=== PATIENT | male | born 1980 | race Caucasian/White ===

== ENCOUNTER → 2021-07-24 10:35 | Outpatient (BNVA) | payer OTHER, SELFPAY | PROVIDERS: Visit Provider Physician Assistant Medical | DX: S33.9XXA Sprain of unspecified parts of lumbar spine and pelvis, initial encounter (principal); X50.0XXA Overexertion from strenuous movement or load, initial encounter | CPT/HCPCS: 99203 ==

== ENCOUNTER → 2022-02-21 11:46 | Outpatient (BNVA) | payer OTHER, SELFPAY | PROVIDERS: Visit Provider Internal Medicine | DX: J34.89 Other specified disorders of nose and nasal sinuses (principal); L53.8 Other specified erythematous conditions | CPT/HCPCS: 99202 ==

== ENCOUNTER → 2024-12-07 08:21 | Outpatient (BNVA) | payer OTHER, SELFPAY | PROVIDERS: Visit Provider Physician Assistant Medical | DX: S62.001A Unspecified fracture of navicular [scaphoid] bone of right wrist, initial encounter for closed fracture (principal); X50.0XXA Overexertion from strenuous movement or load, initial encounter | CPT/HCPCS: 73110; 99203 ==

== ENCOUNTER → 2024-12-22 10:54 | Outpatient (BNVA) | payer OTHER, SELFPAY | PROVIDERS: Visit Provider Emergency Medicine | DX: S62.001D Unspecified fracture of navicular [scaphoid] bone of right wrist, subsequent encounter for fracture with routine healing (principal); X50.0XXD Overexertion from strenuous movement or load, subsequent encounter | CPT/HCPCS: 99213 ==

== ENCOUNTER 2024-12-28 12:40 | Outpatient (REF) | payer OTHER, SELFPAY ==
--- NOTE | ~2024-12-28 | MR_ITS ---
CLINICAL HISTORY: HYPEREXTENDSION INJURY 12.02.24, PAIN MR right wrist without contrast Comparison: CR/SR - XR WRIST NAVICULAR RIGHT - 12/07/24 09:07 EDT Findings: Normal marrow signal. The musculature is normal in signal and bulk. Normal vessels. There is dorsal intercalated segment instability. No ulnar variance. The distal radioulnar joint is congruent. Small carpal and distal radioulnar joint effusions. The scapholunate ligament is torn. Intact lunotriquetral and triangular fibrocartilage. Normal extensor compartment. Normal carpal tunnel, median nerve, flexor retinaculum, flexor tendons and Guyon canal. Intact first carpometacarpal, scaphotrapezotrapezoidal and pisiform-triquetral joints. Impression: Tear of the scapholunate ligament with associated dorsal intercalated segment instability. Small carpal and distal radioulnar joint effusions. This document has been electronically signed by: María Sue MD on 12/28/2024 14:11:24
--- OUTSIDE RECORDS SUMMARY | 2024-12-28 16:41 | XMS_ITS ---
Author Name [facility] Organization Unknown Encounters Encounter Type Encounter Reason Primary Diagnosis Location Date Ambulatory [facility], [facility]. ([facility]) 04/01/2024
--- OUTSIDE RECORDS SUMMARY | 2024-12-28 16:41 | XMS_ITS | Clinical Summary ---
Author Organization [facility] Address [address] [place] [address] Care Team Providers Care Lawn Technician Name Role Phone Unavailable Primary Care Provider Unavailabl e Source Comments PLEASE NOTE, if this patient is a minor, it may be UNLAWFUL to discuss sensitive information that is contained in these records (such as FAMILY PLANNING, MENTAL HEALTH or SUBSTANCE ABUSE) with the minor patient's parent or other person without the patient's specific authorization.[facility] Allergies No known active allergies Medications [place]-3 Fatty Acids-Vitamin E (FISH OIL) 1,000 mg cap Take 2 Caps by mouth once daily. Active loratadine (CLARITIN) 10 mg tablet Take 10 mg by mouth once daily. Active L.acidoph-L.rhamn -B.bif-B.long (PROBIOTIC ACIDOPHILUS BIOBEADS) 2.5 billion cell TbEC Take 1 Tab by mouth once daily. Active oi-tm-YY-lycopene -lut-#178herb (KATIE MULTIVITAMIN FOR MEN) 200-175-250 mcg Tab Take 2 Caps by mouth once daily. Active NFDB - ADRENAL SUPPORTIndication s:Other malaise and fatigue Take 2 Caps by mouth once daily. 60 Cap 3 12/09/2011 Active Active Problems Problem Noted Date Diagnosed Date Other malaise and fatigue 11/25/2011 Family History Medical History Relation Name Comments Depression Paternal Uncle 1 schizophren ia Depression Paternal Uncle 2 schizophren ia Relation Name Status Comments Paternal Uncle 1 Paternal Uncle 2 Social History Tobacco Use Types Packs/Day Years Used Date Smoking Tobacco: Former Cigarettes 0.5 10 0 11/24/1994 - 11/24/2004 Smokeless Tobacco: Current Chew Tobacco Cessation:Ready to Q uit: Yes Alcohol Use Standard Drinks/Week Comments Yes 2.5 (1 standard drink = 0.6 oz p ure alcohol) Sex and Gender Information Value Date Recorded Sex Assigned at Not on file Legal Sex Male 1:32 AM PST Gender Identity Not on file Sexual Orientation Not on file Last Filed Vital Signs Vital Sign Reading Time Taken Comments Blood Pressure 108/72 12/09/2011 4:43 PM PDT Pulse 72 12/09/2011 4:43 PM PDT Temperature 36.8 C (98.3 F) 11/25/2011 4:48 PM PDT Respiratory Rate 12 12/09/2011 4:43 PM PDT Oxygen Saturation - - Inhaled Oxygen Concentration - - Weight - - Height - - Body Mass Index - - Plan of Treatment Not on file
== END 2024-12-28 12:41 | disposition home or self-care (01) ==
LOC: HO.MRI 12:40
PROVIDERS: Visit Provider Emergency Medicine
DX: M25.531 Pain in right wrist (principal)
CPT/HCPCS: 73221

== ENCOUNTER → 2024-12-28 12:41 | Outpatient (BNV) | payer OTHER, SELFPAY | PROVIDERS: Visit Provider Radiology Diagnostic Radiology | DX: S63.511A Sprain of carpal joint of right wrist, initial encounter (principal); M25.431 Effusion, right wrist; X50.9XXA Other and unspecified overexertion or strenuous movements or postures, initial encounter | CPT/HCPCS: 73221 ==

== ENCOUNTER 2024-12-29 09:50 | Outpatient (AMB) | payer OTHER, SELFPAY ==
[2024-12-29 10:08] VITALS: BMI 29.7
--- NOTE | 2024-12-29 10:08 | A.OFFVIS_ITS ---
Vital Signs 12/29/24 10:08 Height 6 ft 1 in Weight 225 lb BMI 29.7 Intake Visit Reasons: N/P W/C RT wrist injury/ ligament tear Intake Note: right hand dominant male who presents today for his W/C injury to his right wrist on 12/02/24. 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 He felt immediate pain and was seen at [facility] and then seen at [facility] the following day. An MRI was done. Currently states his pain is better, he continues to wear his brace and is doing gentlr ROM. Denies numbness or tingling in finger tips. Allergies No Known Allergies Allergy (Verified 12/29/24 10:12) HPI HPI N/P W/C RT wrist injury/ ligament tear: Details: Jerson is a 44 year old right hand dominant man who presents for a right scaph olunate tear, from an injury at work, DOI: 12/02/24. 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 He was seen at [facility] and given a splint. He had an MRI done on 12/28/24. He complains of mild pain in his wrist, but says this has improved. He has been wearing his splint and working on gentle ROM. He still has a clicking sensation in his wrist. He denies any numbness or tingling. [facility] Medical History (Updated 12/29/24 @ 10:23 by Sammy Melendez) Tympanosclerosis of left ear Social History (Updated 12/29/24 @ 10:13 by Orquidea Avalos 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 Review of Systems Const All systems reviewed & are unremarkable except as noted in HPI and below Physical Exam Vital Signs: BMI result Body Mass Index 29.7 Const General: cooperative, healthy appearing and no acute distress Orientation/consciousness: patient oriented x3 HEENT Head: Yes normocephalic and Yes atraumatic Eyes EOM: EOMs intact bilaterally Resp Effort & Inspection: normal respiratory effort and able to speak in complete sentences Cardio Jugular venous distension: no JVD Skin General skin exam: turgor normal Rashes: no rashes Neuro General: patient oriented x3 Extrem Other: Evaluation of Right Upper Extremity: The patient is alert, oriented, and in no acute distress Neuro: Median, Ulnar, Radial nerves motor and sensory intact and sensation is normal to the tips of all digits Vascular: Cap refill brisk ROM: He can make a fist and extend all his digits Skin: No lacerations or abrasions. General: No Ecchymosis. No Erythema or evidence of infection. Pos scaphoid shift test Right wrist MRI: Findings: Normal marrow signal. The musculature is normal in signal and bulk. Normal vessels. There is dorsal intercalated segment instability. No ulnar variance. The distal radioulnar joint is congruent. Small carpal and distal radioulnar joint effusions. The scapholunate ligament is torn. Intact lunotriquetral and triangular fibrocartilage. Normal extensor compartment. Normal carpal tunnel, median nerve, flexor retinaculum, flexor tendons and Guyon canal. Intact first carpometacarpal, scaphotrapezotrapezoidal and pisiform-triquetral joints. Impression: Tear of the scapholunate ligament with associated dorsal intercalated segment instability. Small carpal and distal radioulnar joint effusions. This document has been electronically signed by: María Sue MD on 12/28/2024 Psych Appearance: grossly normal Affect: normal affect Attitude: cooperative Assessment & Plan Assessment & Plan (1) Right scapholunate ligament tear: Code(s): S63.8X1A - Sprain of other part of right wrist and hand, initial encounter Category: Medical Plan Assessment & Plan: 1. 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 He will remove this at home at rest I discussed activity modifications, he is to lift nothing heavier than a cellphone for the next 8 weeks. They should also avoid any heavy impact activities, falls, or sports activities for the next 8 weeks The risks and benefits of operative treatment were discussed with the patient and the patient wishes to proceed with surgery. These risks include, but are not limited to risk of damage to blood vessels, nerves, tendons, infection, recurrence, incomplete relief of preoperative symptoms, persistent pain, possible need for further surgery and the risks associated with regional blocks and anesthesia. The plan is to take the patient to the operating room sometime on 01/06/25 for the following procedures: 1. Right wrist ORIF & scapholunate ligament repair, under general All of the preoperative paperwork including the consent was reviewed today. All the patient's questions were answered. The patient understands that they will be contacted by our spares scheduler soon to schedule this procedure He denies Diabetes, blood thinners, asthma, heart, lung, kidney issues Please note that greater than 45 minutes was spent with this patient going over the history, evaluating the patient and radiographs, formulating possible treatment options, discussing them with the patient, and documenting the visit. Scribed for Kassi Avelar MD by Sammy Melendez, medical dosimetrist, on 12/29/24 at 10:25 AM, EST. Coding Level of Care Code New Pt Level 4 (96005) Diagnoses Right scapholunate ligament tear S63.8X1A
--- OUTSIDE RECORDS SUMMARY | 2024-12-29 11:41 | XMS_ITS | Clinical Summary ---
Author Organization [facility] Address [address] [place] [address] Care Team Providers Care Sportspersons Name Role Phone Unavailable Primary Care Provider Unavailabl e Source Comments PLEASE NOTE, if this patient is a minor, it may be UNLAWFUL to discuss sensitive information that is contained in these records (such as FAMILY PLANNING, MENTAL HEALTH or SUBSTANCE ABUSE) with the minor patient's parent or other person without the patient's specific authorization.[facility] Allergies No known active allergies Medications [place]-3 Fatty Acids-Vitamin E (FISH OIL) 1,000 mg cap Take 2 Caps by mouth once daily. Active loratadine (CLARITIN) 10 mg tablet Take 10 mg by mouth once daily. Active L.acidoph-L.rhamn -B.bif-B.long (PROBIOTIC ACIDOPHILUS BIOBEADS) 2.5 billion cell TbEC Take 1 Tab by mouth once daily. Active lc-vb-AA-lycopene -lut-#178herb (KATIE MULTIVITAMIN FOR MEN) 200-175-250 mcg [...]
== END 2024-12-29 11:08 | disposition home or self-care (01) ==
LOC: HO.HOS 09:51
PROVIDERS: Visit Provider Orthopaedic Surgery
DX: S63.8X1A Sprain of other part of right wrist and hand, initial encounter (principal)
CPT/HCPCS: 99204

== ENCOUNTER → 2024-12-29 09:50 | Outpatient (BNVA) | payer OTHER, SELFPAY | PROVIDERS: Visit Provider Orthopaedic Surgery | DX: S63.8X1A Sprain of other part of right wrist and hand, initial encounter (principal) | CPT/HCPCS: 99202 ==

== ENCOUNTER 2025-01-06 07:50 | Day surgery (SDC) | payer OTHER, SELFPAY ==
--- NOTE | 2025-01-04 09:49 | HO.ANESPROP2 ---
Documented by User: Aliya Colbert NP 01/04/25 09:50 HPI - Anesthesia Eval Consult details Narrative: 44yo M for Right Wrist ORIF,scapholunate ligament tear PMFSH Active Problems Active Problems: All Active Problems Right scapholunate ligament tear (Acute) Past Medical History Medical History Tympanosclerosis of left ear Surgical History Surgical History History of tympanoplasty of left ear Social History Social History Patient Tobacco Use Status: Former Tobacco user Tobacco use type: Cigarette Use of substances other than those prescribed or required for medical reasons: No Advance Directives: No Advance Directives Information Provided: Yes Poor oral hygiene: No Current occupational status: employed 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 Meds Allergies Allergy/AdvReac Type Severity Reaction Status Date / Time No Known Allergies Allergy Verified 12/29/24 10:12 Home Medications ?Medication ?Instructions ?Recorded ?Confirmed ?Last Taken ?Type methylphenidate HCl 27 mg 27 mg PO QAM PRN unknown 12/29/24 01/06/25 01/05/25 History tablet,extended release 24 hr prazosin 2 mg capsule 2 mg PO BEDTIME 12/29/24 01/06/25 01/05/25 History venlafaxine 150 mg 300 mg PO BEDTIME 12/29/24 01/06/25 01/05/25 History capsule,extended release 24 hr Assessment and Plan Assessment Anesthesia Assessment: Chart Reviewed Documented by User: Nikhil Muro MD 01/06/25 09:46 PMFSH Past Medical History Medical History Tympanosclerosis of left ear Functional capacity: independent ambulation Family History Family history of problems with anesthesia: No Surgical History Surgical History History of tympanoplasty of left ear History of Problems with Anesthesia: No Social History Social History Patient Tobacco Use Status: Former Tobacco user Tobacco use type: Cigarette Use of substances other than those prescribed or required for medical reasons: No Advance Directives: No Advance Directives Information Provided: Yes Poor oral hygiene: No Current occupational status: employed 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 Meds Allergies Allergy/AdvReac Type Severity Reaction Status Date / Time No Known Allergies Allergy Verified 12/29/24 10:12 Home Medications ?Medication ?Instructions ?Recorded ?Confirmed ?Last Taken ?Type methylphenidate HCl 27 mg 27 mg PO QAM PRN unknown 12/29/24 01/06/25 01/05/25 History tablet,extended release 24 hr prazosin 2 mg capsule 2 mg PO BEDTIME 12/29/24 01/06/25 01/05/25 History venlafaxine 150 mg 300 mg PO BEDTIME 12/29/24 01/06/25 01/05/25 History capsule,extended release 24 hr Assessment and Plan Assessment Anesthesia Assessment: Anesthesia Plan Discussed Final Anesthetic Review Family History of Problems with Anesthesia: No History of Problems with Anesthesia: No NPO: Yes ASA Class: II Final Preanesthetic Review: No Changes in Pt Med Stat, Meds/Allgs Chart Reviewed, Consent Obtained/Reviewed and Anes Risks/Benef Reviewed Patient Risk: Low Procedure Risk: Low Anesthetic Plan Anesthetic Plan: GA and Agree w/ Assess. and Plan Disposition: Standard PACU and Inp. Admit - ICU
[2025-01-06] VITALS (8 sets, daily range): BP systolic 110–126; BP diastolic 53–89; PULSE 72–100; RESP 16; TEMP 36.7–37.2; O2SAT 94–99; BMI 29.8
--- NOTE | ~2025-01-06 | FL_ITS ---
EXAMINATION: FL GUIDANCE ONLY HISTORY: ORIF - right COMPARISON: Correlation is made with plain films of the right wrist dated 12/07/2024. TECHNIQUE: Fluoroscopy time: 2 minutes, 26.2 seconds. Cumulative Dose: 4.62 mGy. DAP: 0.2754 Gym2 Images: 13. FINDINGS: Fluoroscopic spot films of the right wrist demonstrate placement of multiple pins at the radial aspect of the carpus. FL/FL guidance in OR IMPRESSION: Fluoroscopy during procedure. Please see procedure report for additional information. Electronically signed by: Sandro Stoll MD 01/07/2025 07:01 AM EDT
--- NOTE | 2025-01-06 07:36 | W.PM.OPN ---
Operative Note Operative Note Date of Service: 01/06/25 Narrative: Operative Note Narrative: Preop diagnosis: ? 1. Right scapholunate ligament tear with instability Postop diagnosis: ?Same Procedure: ? 1. Right wrist open reduction of the scapholunate joint with fixation 2. Right scapholunate ligament repair Surgeon: ?Kassi Avelar MD Microfilming Document Preparer: ?Kevin CANTU Anesthesia: ?General Anesthesia ?plus regional block Findings: ?Scapholunate ligament tear visualized. Scapholunate angle before reduction was about 80 degrees Implants: 0.054 K-wires times 2 Tourniquet time: ?105 minutes EBL: ?5.0 ml Specimen: ?None Drains: ?None Complications: ?None Disposition: ?Brought to the recovery room in stable condition Plan: ? Follow-up in 10-14 days for wound check, pre clinic radiographs, suture removal and placement in a short-arm cast Anticipate K-wire removal at 6-8 weeks. Indications: ?The patient 44 years old with ?with a right wrist scapholunate ligament tear with instability ?. ?The risks and benefits of operative treatment, including but not limited to risk of damage to blood vessels, nerves, tendons, infection, recurrence, persistent pain or numbness, incomplete resolution of preoperative symptoms, or need for further surgery were discussed with the patient and they wished to proceed with surgery. Procedure: ?Once consent was obtained patient was brought back to the operating suite and placed in the operating table in a supine position. ?A regional block was performed by the anesthesia team. ?Perioperative antibiotics and anesthesia was administered by the anesthesia team. ?A tourniquet was applied to the proximal aspect of the left upper extremity and the limb was prepped and draped in a standard surgical fashion. ?The limb was elevated exsanguinated with Esmarch bandage and the tourniquet inflated to 250 mm of mercury for a total tourniquet time of 105 minutes. ? The FluoroScan was used during the case to assess our reduction and placement of all implants. ???I made a 6 cm longitudinal incision centered over the dorsal aspect of the patient's right wrist extending essentially from the base of the 3rd metacarpal to just ulnar to Rosalba's tubercle. ?The incision was made through the skin the subcutaneous tissues using a 15. Blade. ?I then dissected down to the level of the extensor retinaculum. ?I opened the distal aspect of the extensor retinaculum longitudinally on the radial aspect of the 4th dorsal compartment. ?The extensor tendons of the 4th dorsal compartment were then retracted ulnarly. ?The EPL tendon was left within the 3rd dorsal compartment and protected during the case. ???The distal aspect of the posterior interosseous nerve was identified and a neurectomy performed to decrease pain in the wrist. ?I then carefully made a longitudinal incision extending from the dorsal aspect of the distal radius distally over the capsular ligamentous tissues in the direction of the 3rd metacarpal. ?Care was taken to assure that there was no penetration through the capsular ligamentous tissues that would injure the articular cartilage or the intercarpal ligament of the wrist joint. ?We created radial and ulnar flaps. ?At this point we can visualize the scapholunate interval as well as the head of the capitate. ?We visualize the disruption of the scapholunate ligament between the scaphoid and the lunate, and the scaphoid was found to be in some flexion and the lunate tipped dorsally with a scapholunate angle of about 85 degrees.. ?Applying traction across the wrist joint did appear to reduce the scaphoid and the lunate. ?0.062 K-wires were placed as joysticks into the dorsal aspect of the scaphoid and the lunate. ?This helped facilitate our reduction. ?I passed a 0.054 K-wire transversely through the radial aspect of the scaphoid and passing across the scapholunate interval and into the lunate. ?I passed a 2nd 0.054 K-wire through the radial aspect of the scaphoid across the scaphoid capitate joint and into the capitate. ? ?I was satisfied with our reduction and placement of all implants on fluoroscopic images. ?The Pins were cut short bent and pin caps were applied. I then turned my attention to the repair of the scapholunate ligament. ?Regarding the scapholunate ligament, there was a significant portion of the scapholunate ligament still attached to the dorsal aspect of the lunate. We did find a small remnant that we could reapproximate to on the dorsal aspect of the scaphoid. I thus repaired the scapholunate ligament primarily using some 4-0 FiberWire suture material.??I then advanced a section of the dorsal capsule from the dorsal aspect of the distal radius to the dorsal aspect of the scaphoid just distal to the waist, performing a capsulodesis securing it using some 4-0 FiberWire. I was satisfied with our fixation and our repair and decided not to place a 3rd K-wire. At this point the wound was irrigated with normal saline. The dorsal capsule was then reapproximated with some 4-0 FiberWire and 4-0 Vicryl. ?The extensor retinaculum was then repaired over top of the 4th dorsal compartment using some 3-0 Ethibond and 4-0 Vicryl suture. ?The EPL tendon was visualized within the 3rd dorsal compartment and its mobility visualized with some thumb motion. ?At this point the wound was copiously irrigated with normal saline. ? The tourniquet was deflated and hemostasis obtained with a brief period of local pressure and bipolar electrocautery. ?The wound was copiously irrigated with normal saline. ?The subcutaneous layer was closed with 4-0 Vicryl suture, and the skin edges were reapproximated with 5-0 nylon suture. ?The wound was infiltrated with some 1% lidocaine with epinephrine for postop pain control and a sterile dressing and dorsal splint was applied. ?The patient appears to have tolerated the procedure well and with no complications. ?All digits were well vascularized conclusion of the case.
[2025-01-06] MEDS: Lactated Ringers 1,000 ML 100 ML IVCONT (08:29)
--- NOTE | 2025-01-06 09:35 | MHC.SHP ---
Pre-Procedural Eval Section A - 24 Hr Update-Section A only Date of Service: 01/06/25 The patient is an INPATIENT: No Changes since office visit: Yes Cold of Flu in the past 2 weeks, Yes New Medical Problems, Yes Changes in Medication and Yes Patient answered all questions The patient has been examined within 24 hours of the surgical procedure. The History & Physical has been completed within 30 days and I have reviewed it.: Yes Section B - Complete if H&P > 30 days Chief Complaint: Sprain of other part of right wrist and hand, init Allergies: Allergies Allergy/AdvReac Type Severity Reaction Status Date / Time No Known Allergies Allergy Verified 12/29/24 10:12 Plan I have reviewed the history and physical and performed a pertinent physical examination on my patient. No changes have occurred unless specified. Time Spent With Patient Time: Total time managing care of this patient today ____ minutes.
== END 2025-01-06 15:05 | disposition home or self-care (01) ==
PROVIDERS: Visit Provider Orthopaedic Surgery
PROC: (CPT 25628; principal; 2025-01-06 09:30)
DX: S63.8X1A Sprain of other part of right wrist and hand, initial encounter (principal); M25.531 Pain in right wrist; M25.331 Other instability, right wrist; Y93.F2 Activity, caregiving, lifting; Y92.89 Other specified places as the place of occurrence of the external cause; Y99.0 Civilian activity done for income or pay; Z79.899 Other long term (current) drug therapy; Z98.890 Other specified postprocedural states; Z87.891 Personal history of nicotine dependence
CPT/HCPCS: 25628; 25320; J0131; J0665; J0690; J1100; J1171; J2003; J2004; J2250; J2405; J2704; J2795; J3010

== ENCOUNTER → 2025-01-06 07:50 | Outpatient (BNV) | payer OTHER, SELFPAY | PROVIDERS: Visit Provider Orthopaedic Surgery | DX: S63.511A Sprain of carpal joint of right wrist, initial encounter (principal) | CPT/HCPCS: 25320 ==

== ENCOUNTER 2025-01-18 11:06 | Outpatient (AMB) | payer OTHER, SELFPAY ==
--- NOTE | 2025-01-18 11:19 | MHC.OFFVIS ---
Intake Visit Reasons: P/O W/C RT SL ligament repair DOI 12/02/24 Intake Note: Jerson is a 44 year old Right hand dominant male who presents today for his first post operative visit s/p Right Scaphoid ORIF & Scapholunate Ligament repair 01/06/25. This is a work related injury from 12/02/24. States he is doing well, no pain but at times he feels a sharp stabbing sensation by pins site. Allergies No Known Allergies Allergy (Verified 01/18/25 11:24) HPI HPI P/O W/C RT SL ligament repair DOI 12/02/24: Details: Jerson is a 44 year old right hand dominant man who returns S/P scapholunate joint ORIF & ligament repair, DOS: 01/06/25. This is from an injury at work, DOI: 12/02/24. 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 He says he is doing better and his pain overall has improved. He complains of an occasional sharp pain in his radial wrist, near his pin sites. He says this began following surgery. He denies any numbness or tingling. 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 Sutures removed and Steri-Strips applied Sensation is intact Cap refill is brisk Radiographs: 3 views of the right wrist were taken and viewed by me today in clinic. They show the scapholunate interval well-reduced with satisfactory position of 2 K-wires Psych Appearance: grossly normal Affect: normal affect Attitude: cooperative Assessment & Plan Assessment & Plan (1) Right scapholunate ligament tear: Code(s): S63.8X1A - Sprain of other part of right wrist and hand, initial encounter Category: Medical Plan Assessment & Plan: 1. 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 I discussed activity modifications, he is to lift nothing heavier than a cellphone for the next 6 weeks. 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 Anticipate at least 8 weeks out of work, up to 3 months post-op He will follow up in 4 weeks, with X-rays 3V R wrist, OOP. Anticipate removal of K-wires at 6-8 weeks post-op, ideally closer to 8 weeks. Anticipate OT referral after K-wire removal Scribed for Kassi Avelar MD by Sammy Melendez, medical sales representative, on 01/18/25 at 11:25 AM, EST. Orders: Orders XR wrist RT min 3V Today M25.531 - Pain in right wrist Coding Level of Care Code Global (53533) Diagnoses Right scapholunate ligament tear S63.8X1A
--- OUTSIDE RECORDS SUMMARY | 2025-01-18 13:47 | XMS_ITS | Data Portability ---
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 The pain has continued since that time in spite of rest and vigorous rehab. The patient has been able to continue to work but has had to modify his movement pattern secondary to pain. He denies any weakness but feels that his shoulder is unstable. ROS: Pertinent positives and negatives as above. For full review of all systems, please refer to scanned intake form. 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 Tobacco: Denies. FHx: No family history that contributes to today's MSK complaint. Physical Exam: Afebrile Gen: No acute distress.AOx3. Smiling and pleasant. Skin: Warm, dry, MMM Lymphatics: no noted lymphadenopathy MSK: Shoulder Exam: Inspection: No noted significant asymmetry or atrophy. Mild to moderate forward rounding of the shoulders. Mild to moderate scapular protraction. No winging. Trapezius: symmetric. Palpation: SC - nl, AC - nl. Periscapular - nl. Bicipital groove - nl. Rotator cuff muscles - Mild TTP. Greater tub. - nl. Lesser tub - nl. ROM: Full and symmetric with painful arc. Strength: IR/ER/Scaption/for morris flex/abduct./adduc t: 5/5 and symmetric. Special tests: Tressa's: Positive. Belly lift-off: neg. Speed's: neg. Neer: neg. Guerrero: Positive. [place]: Positive. Biceps labral provocation: Positive. Javier' 90/90 Resisted IR: Positive. Scarf: neg. Apprehension: neg. Relocation: neg. Anterior drawer: neg. Post. drawer: neg. Sulcus: neg. Elbow exam: Inspection: No noted asymmetry or atrophy. No edema, effusion, or ecchymosis noted. ROM: full. Strength: 5/5. Palpation: Radial head: No TTP. Coronoid: No TTP. Olecranon: No TTP. Lateral epicondyles: Positive TTP over common extensor tendon attachment. TTP over myotendinous junction. Medial epicondyle: Mild TTP. UCL: Nl. Triceps tendon: Normal. Biceps tendon: Normal. Special Tests: Resisted wrist extension: Positive. Resisted forearm supination: Positive. Resisted forearm pronation: Normal. Varus stress at 20 : Negative, at full extension: Negative. Valgus stress at 20 : Negative, full extension: Negative. Extension valgus test: Negative. Dynamic valgus stress: nl. Milking: nl. Ulnar Tinel's:nl. Neurovascular: Sensation to light touch: Intact and symmetric. DTR: Intact and symmetric. Peripheral pulses: Intact and symmetric. Cap. Refill: brisk. Radiographic/Imagi ng Interpretation: 4 view left shoulder . Findings: No fracture or dislocation. Joint space is well-preserved. Normal alignment. No significant degenerative changes noted. Impression: Negative . MRI left shoulder. Impression: SLAP tear Images are stored and retrievable. Assessment: 1. Ongoing left shoulder pain-SLAP tear 2. Left medial and lateral epicondylitis Procedure: None Plan: 1.Consultation with Dr. Sweet 2. Home rehab programs for both the elbow and the shoulder were given 3. Nitroglyerin patch-Benefits and risks were discussed including common adverse reactions such as headache and local rash. This medication should not be used when on ED medications or if the patient has a history of severe migraine disorder. If the patient has continuing headache associated with use, the patient should discontinue use of the patch. The same is true with development of a local rash. 4. Diclofenac -Benefits and risks were thoroughly discussed with the patient. The patient was instructed to monitor for GI upset and to avoid dehydration while on the medication. Recommended duration of use was also discussed. The patient felt comfortable starting the medication and would like to proceed with its use. 5. Gabapentin for pain management-benefit s of gabapentin in pain control were thoroughly discussed. Common adverse effects such as cognitive impairment, morning somnolence were discussed. Though this is not a habit-forming medication it is important to wean off the medication progressively secondary to the possibility of emotional lability. Recommended duration of use was also discussed. The patient felt comfortable starting the medication and would like to proceed with its use. 6. Follow up as needed All of the patient's questions were answered fully. The patient feels comfortable with the present care plan. Thanks for allowing me to be a part of this patient's care team! Please feel free to contact me for any reason. Sincerely, Brock Tipton MD, [facility] Sports [facility] [email or web address] Not available 07/10/2023 17:56:45 07/24/2023 07/24/2023 X-rays 4 views previously obtained and personally reviewed today AP internal/external, scapular Y, axillary views left shoulder demonstrate: Maintained glenohumeral and AC joint space. Type II acromion. No fractures. No calcifications MRI left shoulder obtained on June 18, 2023 images and report independently reviewed: Signal change at the anterior inferior labrum consistent with fraying or tear. It is not reported however there is signal change at the superior labrum possibly consistent with SLAP tear. Mild synovial thickening of the AC joint without any advanced degenerative changes. Biceps tendon is intact. Bursal fraying distal supraspinatus. Subchondral changes at the infraspinatus insertion. Type II acromion. Subacromial bursitis. Impression: Left shoulder pain and instability symptoms-findings consistent with anterior labral tear Plan: Reviewed the diagnosis and treatment options with the patient today. Patient complains of pain and instability symptoms with mild anterior instability on examination today. 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 We discussed options including activity modification, anti-inflammatorie s, corticosteroid injections, formal PT, and surgery for symptoms refractory to conservative treatment. Potential surgical intervention discussed: Left shoulder diagnostic arthroscopy, possible anterior labral repair, possible SLAP repair versus debridement, limited, possible extensive debridement, and all other indicated procedures. Would recommend further nonsurgical treatment including formal physical therapy and corticosteroid injection before considering surgical mention. Patient is happy to try some additional nonoperative treatment. Injection was administered referral therapy was provided. He will follow-up in 2 months for repeat exam. All questions answered today. [email or web address] Not available 07/24/2023 09:19:33 09/04/2023 09/04/2023 Imaging previous ly reviewed: X-rays 4 views previously obtained and personally reviewed today AP internal/external, scapular Y, axillary views left shoulder demonstrate: Maintained glenohumeral and AC joint space. Type II acromion. No fractures. No calcifications MRI left shoulder obtained on June 18, 2023 images and report independently reviewed: Signal change at the anterior inferior labrum consistent with fraying or tear. It is not reported however there is signal change at the superior labrum possibly consistent with SLAP tear. Mild synovial thickening of the AC joint without any advanced degenerative changes. Biceps tendon is intact. Bursal fraying distal supraspinatus. Subchondral changes at the infraspinatus insertion. Type II acromion. Subacromial bursitis. Impression: Left shoulder pain and instability symptoms-findings consistent with anterior labral tear Plan: Patient reports significant improvement after corticosteroid injection and physical therapy. He did reaggravated his shoulder while at work last night. Given significant clinical improvement we will plan for continued nonoperative care for now. Patient would be interested in corticosteroid injection. We discussed need to wait 12 weeks between injection. If ongoing symptoms refractory to conservative management would consider surgical intervention: Left shoulder diagnostic arthroscopy, possible anterior labral repair, possible SLAP repair versus debridement, possible biceps tenodesis, limited, possible extensive debridement, and all other indicated procedures. Patient would like to schedule injection only visit in 6 weeks. All questions answered today. [email or web address] Not available 09/04/2023 18:24:08 Plan of Treatment Reminders Order Date Submit Date Provider Last Modified By Organization Details Last Modified Time Details Appointments None recorded. Lab None recorded. Referral physical therapist referral - STREN[facility] NG AND STABILIZATI ON FOR ANTERIOR LABRAL TEAR IN LEFT SHOULDER 2023 024 [email or web address] Not available 11:20:43 Procedures None recorded. Surgeries None recorded. Imaging None recorded. Medication Orders None recorded. Patient TargetsNo targets recorded. Patient InstructionsNo instructions recorded. Reason for Referral Physical Therapist Referral for Glenoid labrum tear ANTERIOR LABRAL TEAR STRENGTHENING AND STABILIZATION FOR ANTERIOR LABRAL TEAR IN LEFT SHOULDER Referring Physician: Dylan Sweet, Orthopedic Surgery, Encounter Date: 07/24/2023 Results Created Date Observation Date Name Description Value Unit Range Abnormal Flag Note LastModifiedBy Organization Detail LastModifiedTime 12/12/1906/10/2023 imagi ng/di prasad tic resul t No observ ation record ed. [email or web address] Not Available 11/14 21:02:35 Result Notes None recorded. Problems Name Problem SNOMED Code Status Onset Date Resolution Date Notes Provider Name and Address Organization Details Recorded Time Anterior to posterior tear of superior glenoid labrum of left shoulder 14008379304498 108 Active 2023 Brock hernandez MD [address], [address], [facility] 17:57:00 Problem Notes None recorded. Procedures Surgical History Date Name Laterality Status Provider Name and Address Organization Details Recorded Time Sports Shoulder completed Dylan Sweet MD [address], [address], [facility] 07/24/2023 09:16:15 Imaging Results None recorded. Procedure Notes None recorded. Medical Equipment None Reported. Allergies No known drug allergies Medications Name Sig Start Date Stop Date Status Note LastModified by Organization Details LastModified Time nitroglycer in 0.1 mg/hr transdermal 24 hour patch USE as directed - Apply 1 full patch to desired location as needed Replace every 24 hours active Not Available Not Available No t Available prazosin 1 mg capsule Take 1 capsule (1 mg) by mouth daily at bedtime 07/09 completed Not Available Not Available Not Available venlafaxine ER 150 mg capsule,ext ended release 24 hr Take 2 capsules (300 mg) by mouth daily after breakfast active Not Available Not Available No t Available gabapentin 300 mg capsule TAKE 1 CAPSULE BY MOUTH EVERY NIGHT AT BEDTIME active Not Available Not Available No t Available diclofenac sodium 75 mg tablet,rachel yed release TAKE 1 TABLET BY MOUTH TWICE DAILY WITH food directed active Not Available Not Available No t Available prazosin 2 mg capsule Take 1 capsule (2 mg) by mouth daily at bedtime active Not Available Not Available No t Available methylpheni date ER 27 mg tablet,exte nded release 24 hr Take 1 tablet (27 mg) by mouth daily in the morning as needed only active Not Available Not Available No t Available atomoxetine 100 mg capsule Take 1 capsule (100 mg) by mouth daily in the morning active Not Available Not Available No t Available Vitals Date Recorded Body height Body mass index (BMI) Body weight Provider Name and Address Organization Details Last Updated DateTime 07/10/2023 187.96 cm 28.2 kg/m2 83731.32 g NOAH AQUINO [facility] 07/10/2023 14:14:55 Date Recorded Body height Body mass index (BMI) Body weight Provider Name and Address Organization Details Last Updated DateTime 07/24/2023 187.96 cm 28.2 kg/m2 81685.32 g JOSÉ LUIS ANTON [facility] 07/24/2023 08:37:26 Date Recorded Body height Body mass index (BMI) Body weight Provider Name and Address Organization Details Last Updated DateTime 09/04/2023 187.96 cm 28.2 kg/m2 96054.32 g Candice guo [facility] 09/04/2023 09:30:56 Social History Question Answer Notes LastModified by Organizat ion Details LastModified Time Tobacco Smoking Status Never Smoker NOAH mercado [facility] 07/10/2023 14:17:06 When Did You Quit Smoking? 11-15yearssin celastcigaret te Information not available 09/04/2023 Have You Ever Been Counseled For Unhealthy Alcohol Use? No Information not available 07/10/2023 What Is Your Relationship Status? Domestic Partner Information not available 09/04/2023 Sex: Unknown Functional Status Question Answer Note LastModified by Organizat ion Details LastModified Time How many times per week do you consume alcohol? 3-4 times per week Information not available 09/04/2023 Do you use any illicit or recreational drugs? No Information not available 07/10/2023 Do you or have you ever used any other forms of tobacco or nicotine? Yes Information not available 09/04/2023 What is your level of alcohol consumption? Moderate Information not available 07/10/2023 Do you or have you ever used e-cigarettes or vape? Never used electronic cigarettes Information not available 09/04/2023 Mental Status None recorded. Family History Nothing Reported. Medical History Condition Response Allergies/Hayfever N Coronary Artery Disease N Anxiety/Depression N Emphysema N Thyroid Problems N COPD N Pacemaker N Kidney/Bladder Problems N Anemia N Vascular Disease N Heart Attack ([place]) N Gastrointestinal Disease N Diabetes N Autoimmune disease N Bleeding Disorder N Orthotics N Seizures/Epilepsy N Arthritis N Blood Clot N AIDS/HIV N Congestive Heart Failure (CHF) N Acid Reflux (GERD) N Cancer N Stroke N Asthma N Peripheral Vascular Disease N Sleep Apnea N Hepatitis N Heart Disease N Rheumatoid Arthritis N Pulmonary Embolism N Arrhythmia N Fibromyalgia N Hypertension N Osteoporosis N Past Encounters Encounter ID Performer Location Encounter Start Date Encounter Closed Date Diagnosis/Indication Diagnosis SNOMED-CT Code Diagnosis ICD10 Code Diagnosis IMO Codes Diagnosis Note [id number] Brock smith MD [facility] on [address] [place] [address] 07/10/2023 13:46:26 07/25/2023 13:33:20 Anterior to posterior tear of superior glenoid labrum of left shoulder [id number] S43.432D [id number] [facility] [address] [place] [address] 07/24/2023 08:33:07 08/19/2023 12:44:20 Glenoid labrum tear 674410693 S43.432A [id number] [facility] [address] [place] [address] 09/04/2023 09:12:04 09/27/2023 08:16:58 Glenoid labrum tear [id number] S43.432A Health Concerns Section Related Observation LastModified by Organization Detai ls LastModified Time None Recorded Concern Status LastModified by Organization Details LastModified Time None Recorded Advance Directives Directive None Recorded Payers Insurance Date Sequence Insurance Name Policy Number Policy Pizano Covered Member ID Pizano Member ID Guarantor Name 10/21/2023 1 [facility] [id number] Jerson Hancock [id number] Jerson Hancock Notes Date Note Type Note Provider Name and Address Organization Details Recorded Time 07/24/2023 text/html CC: Left shoulder painHPI: 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 Patient reports his shoulder has always felt loose . patient reports symptoms worsened after injury while training during for; to (do) in November 2022. He describes. Having his arm positioned in a [place] lock where he felt his shoulder subluxate. Since that episode he has had worsening pain and instability symptoms. He describes pain and weakness with overhead lifting and supination. 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 He has been following with Dr. Tipton for shoulder and elbow symptoms. MRI of the left shoulder has been obtained. Patient here today for surgical consultation. Previous treatment including home exercise program. He has not had any formal physical therapy or steroid injections. ROS: Pertinent positives and negatives as above. 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 Tobacco: Denies. Dylan Sweet MD [address] [place] [address] [address], [place], [address], [facility] - [facility] 07/24/2023 09:20:10 09/04/2023 text/html CC: Left shoulder painInterval history: Patient following up today for his right shoulder. Corticosteroid injection was administered and he was referred to physical therapy at last visit. Patient reports physical therapy was significantly helpful. He has had much less shoulder pain. He reports reaggravated his shoulder while working overnight while carrying a ventilator. 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 Patient reports his shoulder has always felt loose . patient reports symptoms worsened after injury while training during in November 2022. He describes. Having his arm positioned in a [place] lock where he felt his shoulder subluxate. Since that episode he has had worsening pain and instability symptoms. He describes pain and weakness with overhead lifting and supination. 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 He has been following with Dr. Tipton for shoulder and elbow symptoms. MRI of the left shoulder has been obtained. Patient here today for surgical consultation. Previous treatment including home exercise program. He has not had any formal physical therapy or steroid injections. ROS: Pertinent positives and negatives as above. 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 Tobacco: Denies. Dylan Sweet MD [address] [place] [address] [address], [place], [address], [facility] - [facility] 09/04/2023 18:24:22
--- OUTSIDE RECORDS SUMMARY | 2025-01-18 13:47 | XMS_ITS | Clinical Summary ---
Author Organization [facility] Address [address] [place] [address] Care Team Providers Care Chemistry Laboratory Technician Name Role Phone Unavailable Primary Care Provider Unavailabl e Source Comments PLEASE NOTE, if this patient is a minor, it may be UNLAWFUL to discuss sensitive information that is contained in these records (such as FAMILY PLANNING, MENTAL HEALTH or SUBSTANCE ABUSE) with the minor patient's parent or other person without the patient's specific authorization.[facility] Allergies No known active allergies Medications [place]-3 Fatty Acids-Vitamin E (FISH OIL) 1,000 mg cap Take 2 Caps by mouth once daily. Active loratadine (CLARITIN) 10 mg tablet Take 10 mg by mouth once daily. Active L.acidoph-L.rhamn -B.bif-B.long (PROBIOTIC ACIDOPHILUS BIOBEADS) 2.5 billion cell TbEC Take 1 Tab by mouth once daily. Active cz-uh-YG-lycopene -lut-#178herb (KATIE MULTIVITAMIN FOR MEN) 200-175-250 mcg [...]
== END 2025-01-18 12:13 | disposition home or self-care (01) ==
PROVIDERS: Visit Provider Orthopaedic Surgery
DX: S63.8X1A Sprain of other part of right wrist and hand, initial encounter (principal)
CPT/HCPCS: 99024

== ENCOUNTER → 2025-01-18 11:09 | Outpatient (BNV) | payer OTHER, SELFPAY | PROVIDERS: Visit Provider Radiology Diagnostic Radiology | DX: M25.531 Pain in right wrist (principal) | CPT/HCPCS: 73110 ==

== ENCOUNTER 2025-01-18 11:17 | Outpatient (REF) | payer OTHER, SELFPAY ==
--- NOTE | ~2025-01-18 | XR_ITS ---
EXAMINATION: XR WRIST 3 OR MORE VIEWS RIGHT HISTORY: M25.531 - Pain in right wrist COMPARISON: Comparison is made with the prior examination dated 12/07/2024. FINDINGS: Three views of the right wrist are submitted. Osseous mineralization is normal. There is no fracture or dislocation. There has been interval placement of K wires across the scapholunate and scaphocapitate joint spaces. The soft tissues are unremarkable. XR/XR wrist RT min 3V IMPRESSION: Internal fixation of the right wrist as described. Electronically signed by: Sandro Stoll MD 01/18/2025 11:21 AM EDT
== END 2025-01-18 11:18 | disposition home or self-care (01) ==
LOC: HO.HOSX 11:17
PROVIDERS: Visit Provider Orthopaedic Surgery
DX: S63.8X1A Sprain of other part of right wrist and hand, initial encounter (principal); X58.XXXA Exposure to other specified factors, initial encounter
CPT/HCPCS: 73110; 99212

== ENCOUNTER 2025-01-25 08:08 | Outpatient (REF) | payer OTHER, SELFPAY ==
--- NOTE | ~2025-01-25 | XR_ITS ---
EXAMINATION: XR WRIST 3 OR MORE VIEWS RIGHT HISTORY: M25.531 - Pain in right wrist COMPARISON: Comparison is made with the prior examination dated 01/18/2025. FINDINGS: Three views of the right wrist are submitted. Osseous mineralization is normal. Again seen is internal fixation with placement of K wires across the scapholunate and scaphocapitate spaces. The appearance is not significantly changed from the prior study. The soft tissues are unremarkable. XR/XR wrist RT min 3V IMPRESSION: Internal fixation of the right wrist as described. Electronically signed by: Sandro Stoll MD 01/25/2025 10:49 AM EDT
== END 2025-01-25 08:09 | disposition home or self-care (01) ==
LOC: HO.HOSX 08:08
PROVIDERS: Visit Provider Emergency Medicine
DX: Z47.1 Aftercare following joint replacement surgery (principal); S62.001D Unspecified fracture of navicular [scaphoid] bone of right wrist, subsequent encounter for fracture with routine healing; X50.0XXD Overexertion from strenuous movement or load, subsequent encounter
CPT/HCPCS: 73110; 99212; 99213

== ENCOUNTER 2025-01-25 09:22 | Outpatient (AMB) | payer OTHER, SELFPAY ==
--- NOTE | 2025-01-25 10:02 | MHC.OFFVIS ---
Intake Visit Reasons: PO - Right SL Ligament Repair 01/06/25 Intake Note: Jerson is a 44 year old Right hand dominant male who presents today for a cast change for his post operative visit s/p Right Scaphoid ORIF & Scapholunate Ligament repair 01/06/25. This is a work related injury from 12/02/24. STates he is having increase pain and throbbing, no injury he can recall. Cast removed in office. Allergies No Known Allergies Allergy (Verified 01/25/25 10:03) HPI HPI PO - Right SL Ligament Repair 01/06/25: Details: Jerson is a 44 year old right hand dominant man who returns S/P scapholunate joint ORIF & ligament repair, DOS: 01/06/25. This is from an injury at work, DOI: 12/02/24. 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 He complains of worsening pain in the volar aspect of his wrist, near the carpal tunnel, onset ~2 days ago. He denies any falls or injuries, and he says he has been following his activity restrictions. He complains of some occasional numbness in his hand but he says this is only present when he fully extends his arm. 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 The pins do not appear to have moved No pain with gentle axial loading of the wrist No tenderness about the wrist. No swelling no erythema or warmth. Sensation is intact Cap refill is brisk He can bring his fingers close to a weak fist and back into extension. Normal sensation to the tips of all digits. Some decreased sensation in part of the superficial radial nerve distribution over the thumb that is unchanged. Radiographs: 3 views of the right wrist were taken and viewed by me today in clinic. They show the scapholunate interval well-reduced with satisfactory position of 2 K-wires, no change compared to prior. Psych Appearance: grossly normal Affect: normal affect Attitude: cooperative Assessment & Plan Assessment & Plan (1) Right scapholunate ligament tear: Code(s): S63.8X1A - Sprain of other part of right wrist and hand, initial encounter Category: Medical Plan Assessment & Plan: 1. 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 I do not see any evidence of infection, and the pins are in good position. I educated him about the post-operative course He was placed in a short arm cast, to be worn for the next 3 weeks I explained the signs and symptoms of infection, if the patient develops any new or worsening erythema, drainage, pain, or warmth they should contact the clinic or attend the ED. No need for Abx at this time I discussed activity modifications, he is to lift nothing heavier than a cellphone for the next 6 weeks. 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 Anticipate at least 8 weeks out of work, up to 3 months post-op He will follow up on 02/15/25 as scheduled, with X-rays 3V R wrist, OOP. Anticipate placement in new cast for the following 2 weeks Anticipate removal of K-wires at 6-8 weeks post-op, ideally closer to 8 weeks. Anticipate OT referral after K-wire removal Scribed for Kassi vAelar MD by Sammy Melendez medical staff manager, on 01/25/25 at 11:25 AM, EST. Orders: Orders XR wrist RT min 3V Today M25.531 - Pain in right wrist Coding Level of Care Code Global (48094) Diagnoses Right scapholunate ligament tear S63.8X1A
--- OUTSIDE RECORDS SUMMARY | 2025-01-25 10:13 | XMS_ITS | Clinical Summary ---
Author Organization [facility] Address [address] [place] [address] Care Team Providers Care Unix Systems Administrator Name Role Phone Unavailable Primary Care Provider Unavailabl e Source Comments PLEASE NOTE, if this patient is a minor, it may be UNLAWFUL to discuss sensitive information that is contained in these records (such as FAMILY PLANNING, MENTAL HEALTH or SUBSTANCE ABUSE) with the minor patient's parent or other person without the patient's specific authorization.[facility] Allergies No known active allergies Medications [place]-3 Fatty Acids-Vitamin E (FISH OIL) 1,000 mg cap Take 2 Caps by mouth once daily. Active loratadine (CLARITIN) 10 mg tablet Take 10 mg by mouth once daily. Active L.acidoph-L.rhamn -B.bif-B.long (PROBIOTIC ACIDOPHILUS BIOBEADS) 2.5 billion cell TbEC Take 1 Tab by mouth once daily. Active dw-ma-WB-lycopene -lut-#178herb (KATIE MULTIVITAMIN FOR MEN) 200-175-250 mcg [...]
== END 2025-01-25 11:49 | disposition home or self-care (01) ==
LOC: HO.HOS 09:22
PROVIDERS: Visit Provider Orthopaedic Surgery
DX: S63.8X1A Sprain of other part of right wrist and hand, initial encounter (principal)
CPT/HCPCS: 99024

== ENCOUNTER → 2025-01-25 10:25 | Outpatient (BNV) | payer OTHER, SELFPAY | PROVIDERS: Visit Provider Radiology Diagnostic Radiology | DX: M25.531 Pain in right wrist (principal) | CPT/HCPCS: 73110 ==

== ENCOUNTER 2025-02-15 11:24 | Outpatient (AMB) | payer OTHER, SELFPAY ==
--- NOTE | 2025-02-15 12:14 | A.OFFVIS_ITS ---
Intake Visit Reasons: PO-RT SL ligament repair 01/06/25 w/xrays Intake Note: Jerson is a 44 year old Right hand dominant male who presents today for a cast change for his post operative visit s/p Right Scaphoid ORIF & Scapholunate Ligament repair 01/06/25. This is a work related injury from 12/02/24. At his last visit he was placed in a short arm cast, he is to lift nothing heavier than a cellphone. He will perform gentle finger ROM exercises at home. 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 Today patient states he is doing well, no pain just discomfort.. Allergies No Known Allergies Allergy (Verified 01/25/25 10:03) HPI HPI PO-RT SL ligament repair 01/06/25 w/xrays: Details: Jerson is a 44 year old right hand dominant man who returns S/P scapholunate joint ORIF & ligament repair, DOS: 01/06/25. This is from an injury at work, DOI: 12/02/24. 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 He says he is doing well overall, and he denies any pain. He says he has been getting some mild irritation from the pins. He denies any falls or injuries, and he says he has been following his activity restrictions. He says he has some increased pain in the mornings, and he is a restless sleeper and has occasional vivid dreams where he moves around. He complains of some occasional numbness in his hand but he says this is only present when he fully extends his arm. He says he is getting in March so he would hopefully like to be out of a cast by that day. 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 The pins do not appear to have moved No pain with gentle axial loading of the wrist No tenderness about the wrist. No swelling no erythema or warmth. Sensation is intact Cap refill is brisk He can bring his fingers close to a weak fist and back into extension. Normal sensation to the tips of all digits. Some decreased sensation in part of the superficial radial nerve distribution over the dorsal ulnar aspect of the thumb that is unchanged. Radiographs: 3 views of the right wrist were taken and viewed by me today in clinic. They show the scapholunate interval well-reduced with satisfactory position of 2 K- wires. There has been some very small migration of the scaphocapetate pin, which is now entering the hamate. Psych Appearance: grossly normal Affect: normal affect Attitude: cooperative Assessment & Plan Assessment & Plan (1) Right scapholunate ligament tear: Code(s): S63.8X1A - Sprain of other part of right wrist and hand, initial encounter Category: Medical Plan Assessment & Plan: 1. 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 I educated him about the post-operative course He was placed in a short arm cast, to be worn for the next 2 weeks I explained the signs and symptoms of infection, if the patient develops any new or worsening erythema, drainage, pain, or warmth they should contact the clinic or attend the ED. No need for Abx at this time I discussed activity modifications, he is to lift nothing heavier than a cellphone for the next 2 weeks. 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 Anticipate at least 8 weeks out of work, up to 3 months post-op He will follow up in 2 weeks, with X-rays 3V R wrist, OOP. Anticipate K-wire removal & placement in wrist splint, to be worn like a cast. Anticipate OT referral after K-wire removal. He says he is getting in March so he would hopefully like to be out of a cast by that day. Scribed for Kassi Avelar MD by Sammy Melendez, certified medical transcriptionist, on 02/15/25 at 12:25 PM, EST. Orders: Orders XR wrist RT min 3V Today M25.531 - Pain in right wrist Coding Level of Care Code Global (77936) Diagnoses Right scapholunate ligament tear S63.8X1A
--- OUTSIDE RECORDS SUMMARY | 2025-02-15 14:03 | XMS_ITS | Data Portability ---
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 Tobacco: Denies. FHx: No family history that [...] neg. Speed's: neg. Neer: neg. Guerrero: Positive. [place]: Positive. Biceps labral provocation: Positive. Javier' 90/90 [...] for any reason. Sincerely, Brock Tipton MD, [facility] katerina Not available 07/10/2023 17:56:45 [...] today. 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 All questions answered today. [email or web address] Not available 07/24/2023 09:19:33 09/04/2023 09/04/2023 Imaging [...] in 6 weeks. All questions answered today. [email or web address] Not available 09/04/2023 18:24:08 Plan of Treatment [...] of superior glenoid labrum of left shoulder [id number] 108 Active 2023 Brock hernandez MD [address], [address], [facility] 17:57:00 Problem Notes None recorded. Procedures Surgical History Date Name Laterality Status Provider Name and Address Organization Details Recorded Time Sports Shoulder completed Dylan Sweet MD [address], [address], [facility] 07/24/2023 [...] Updated DateTime 07/10/2023 187.96 cm 28.2 kg/m2 87205.32 g NOAH AQUINO [facility] 07/10/2023 14:14:55 Date Recorded Body height Body mass index (BMI) Body weight Provider Name and Address Organization Details Last Updated DateTime 07/24/2023 187.96 cm 28.2 kg/m2 20266.32 g JOSÉ LUIS ANTON [facility] 07/24/2023 08:37:26 Date Recorded Body height Body mass index (BMI) Body weight Provider Name and Address Organization Details Last Updated DateTime 09/04/2023 187.96 cm 28.2 kg/m2 18674.32 g Candice guo [facility] 09/04/2023 09:30:56 Social History Question Answer Notes LastModified by Organizat ion Details LastModified Time Tobacco Smoking Status Never Smoker NOAH mercado [facility] 07/10/2023 14:17:06 When Did You Quit Smoking? [...] History Nothing Reported. Medical History Condition Response Coronary Artery Disease N Anxiety/Depression N Emphysema N COPD N Pacemaker N Vascular Disease N Gastrointestinal Disease N Autoimmune disease N Orthotics N Arthritis N Blood Clot N Acid Reflux (GERD) N Cancer N Stroke N Rheumatoid Arthritis N Arrhythmia N Fibromyalgia N Allergies/Hayfever N Thyroid Problems N Kidney/Bladder Problems N Anemia N Heart Attack (MD) N Diabetes N Bleeding Disorder N Seizures/Epilepsy N AIDS/HIV N Congestive Heart Failure (CHF) N Asthma N Peripheral Vascular Disease N Sleep Apnea N Hepatitis N Heart Disease N Pulmonary Embolism N Hypertension N Osteoporosis N Past Encounters Encounter ID Performer Location Encounter Start Date Encounter Closed Date Diagnosis/Indication Diagnosis SNOMED-CT Code Diagnosis ICD10 Code Diagnosis IMO Codes Diagnosis Note [id number] Brock smith MD [facility] on [facility] [address] [place] [address] 07/10/2023 13:46:26 07/25/2023 13:33:20 Anterior to posterior tear of superior glenoid labrum of left shoulder [id number] 1398546 S43.432D [id number] [facility] [address] [place] [address] 07/24/2023 08:33:07 08/19/2023 12:44:20 Glenoid labrum tear 987057512 S43.432A [id number] [facility] [address] [place] [address] 09/04/2023 09:12:04 09/27/2023 08:16:58 Glenoid labrum tear 839645750 S43.432A Health Concerns Section Related Observation LastModified by Organization Detai ls LastModified Time None Recorded Concern Status LastModified by Organization Details LastModified Time None Recorded Advance Directives Directive None Recorded Payers Insurance Date Sequence Insurance Name Policy Number Policy Pizano Covered Member ID Pizano Member ID Guarantor Name 10/21/2023 1 [facility] [id number] Jerson Hancock [id number] Jerson Hancock Notes Date Note Type Note Provider Name and Address Organization Details Recorded Time 07/24/2023 text/html CC: Left shoulder painHPI: Patient is a 43-year-old roqxz-wvcp-velkdlgo 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 Patient reports his shoulder has always felt loose . patient reports symptoms worsened after injury while training during [employer] in November 2022. He describes. Having his arm positioned in a [place] lock where he felt his shoulder subluxate. Since that episode he has had worsening pain and instability symptoms. He describes pain and weakness with overhead lifting and supination. 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 He has been following with Dr. 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 Tobacco: Denies. Dylan Sweet MD [address] [place] [address] [address], [place], [address], [facility] 07/24/2023 09:20:10 09/04/2023 text/html [...] a ventilator. 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 He has been following with Dr. 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 Tobacco: Denies. Dylan Sweet MD [address] [place] [address] [address], [place], [address], [facility] 09/04/2023 18:24:22
--- OUTSIDE RECORDS SUMMARY | 2025-02-15 14:03 | XMS_ITS | Data Portability ---
Author Organization [facility], [address] Address [address] [place] [address] Assessment No assessment recorded. Plan of Treatment Reminders Order Date Submit Date Provider Last Modified By Organization Details Last Modified Time Details Appointments None record ed. Lab None record ed. Referral None record ed. Procedures None record ed. Surgeries None record ed. Imaging None record ed. Medication Orders None record ed. Patient TargetsNo targets recorded. Patient InstructionsNo instructions recorded. Reason for Referral None Reported. Procedures Surgical History Date Name Laterality Status Provider Name and Address Organization Details Recorded Time [facility] Send Out Template NON DOT completed [facility] 04/01/2024 12:34:10 Imaging Results None recorded. Procedure Notes None recorded. Medical Equipment None Reported. Medications Name Sig Start Date Stop Date Status Note LastModified by Organization Details LastModified Time atorvastatin 80 mg tablet Take 1 Tablet by mouth once daily active Not Available Not Available No t Available nitroglycerin 0.1 mg/hr transdermal 24 hour patch USE as directed - Apply 1 full patch to desired location as needed Replace every 24 hours active Not Available Not Available No t Available venlafaxine ER 150 mg capsule,exten ded release 24 hr Take 2 capsules (300 mg) by mouth daily after breakfast active Not Available Not Available No t Available gabapentin 300 mg capsule TAKE 1 CAPSULE BY MOUTH EVERY NIGHT AT BEDTIME active Not Available Not Available No t Available diclofenac sodium 75 mg tablet,delaye d release TAKE 1 TABLET BY MOUTH TWICE DAILY WITH food directed active Not Available Not Available No t Available prazosin 2 mg capsule Take 1 capsule (2 mg) by mouth daily at bedtime active Not Available Not Available No t Available methylphenida te ER 27 mg tablet,extend ed release 24 hr Take 1 tablet (27 mg) by mouth daily in the morning as needed only active Not Available Not Available No t Available atomoxetine 100 mg capsule Take 1 capsule (100 mg) by mouth daily in the morning active Not Available Not Available No t Available Vitals None Recorded Social History None recorded. Functional Status None recorded. Mental Status None recorded. Family History Nothing Reported. Medical History No medical history recorded. Past Encounters Encounter ID Performer Location Encounter Start Date Encounter Closed Date Diagnosis/Indication Diagnosis SNOMED-CT Code Diagnosis ICD10 Code Diagnosis IMO Codes Diagnosis Note [id number] [address] [address] [address] 10/19/2018 13:18:02 10/19/2018 15:15:01 [id number] PJ BREEN MD [address] [address] 04/01/2024 12:06:37 04/01/2024 12:41:11 History and physical examination, occupation [id number] Z02.1 Health Concerns Section Related Observation LastModified by Organization Detai ls LastModified Time None Recorded Concern Status LastModified by Organization Details LastModified Time None Recorded Advance Directives Directive None Recorded Payers Insurance Date Sequence Insurance Name Policy Number Policy Pizano Covered Member ID Pizano Member ID Guarantor Name 04/01/2024 [employer]-1_ 01.24.2017 [id number] Jerson Hancock 04/01/2024 1 [facility] [id number] Jerson Hancock [id number] Jerson Hancock
== END 2025-02-15 13:05 | disposition home or self-care (01) ==
LOC: HO.HOS 11:24
PROVIDERS: Visit Provider Orthopaedic Surgery
DX: S63.8X1A Sprain of other part of right wrist and hand, initial encounter (principal)
CPT/HCPCS: 99024

== ENCOUNTER → 2025-02-15 11:25 | Outpatient (BNV) | payer OTHER, SELFPAY | PROVIDERS: Visit Provider Radiology Diagnostic Radiology | DX: M25.531 Pain in right wrist (principal) | CPT/HCPCS: 73110 ==

== ENCOUNTER 2025-02-15 12:57 | Outpatient (REF) | payer OTHER, SELFPAY ==
--- NOTE | ~2025-02-15 | XR_ITS ---
EXAMINATION: XR WRIST, RIGHT CLINICAL INFORMATION: M25.531 - Pain in right wrist COMPARISON: Previous x-rays most recent January 25, 2025 TECHNIQUE: PA, lateral, and oblique views of the right wrist. FINDINGS: K wires seen across the scapholunate and scaphocapitate joints. These appear unchanged in position. Increasing osteopenia in the wrist. Question volar tilt of the lunate on the lateral view, unchanged. Soft tissues are unremarkable.. XR/XR wrist RT min 3V IMPRESSION: Stable appearance of K wires across the scapholunate capitate and scapholunate joints. Electronically signed by: Marialuisa Loja MD 02/15/2025 11:42 AM [place]
--- OUTSIDE RECORDS SUMMARY | 2025-02-16 15:40 | XMS_ITS | Clinical Summary ---
Author Organization [facility] Address [address] [place] [address] Care Team Providers Care Neck Pinner Name Role Phone Unavailable Primary Care Provider Unavailabl e Source Comments PLEASE NOTE, if this patient is a minor, it may be UNLAWFUL to discuss sensitive information that is contained in these records (such as FAMILY PLANNING, MENTAL HEALTH or SUBSTANCE ABUSE) with the minor patient's parent or other person without the patient's specific authorization.[facility] Allergies No known active allergies Medications [place]-3 Fatty Acids-Vitamin E (FISH OIL) 1,000 mg cap Take 2 Caps by mouth once daily. Active loratadine (CLARITIN) 10 mg tablet Take 10 mg by mouth once daily. Active L.acidoph-L.rhamn -B.bif-B.long (PROBIOTIC ACIDOPHILUS BIOBEADS) 2.5 billion cell TbEC Take 1 Tab by mouth once daily. Active np-ye-NT-lycopene -lut-#178herb (KATIE MULTIVITAMIN FOR MEN) 200-175-250 mcg [...]
== END 2025-02-15 12:58 | disposition home or self-care (01) ==
LOC: HO.HOSX 12:57
PROVIDERS: Visit Provider Orthopaedic Surgery
DX: S63.8X1A Sprain of other part of right wrist and hand, initial encounter (principal); M25.531 Pain in right wrist; Z98.890 Other specified postprocedural states
CPT/HCPCS: 73110; 99212

== ENCOUNTER 2025-02-19 14:47 | Emergency (ER) | payer OTHER, SELFPAY ==
--- NOTE | ~2025-02-19 | XR_ITS ---
CLINICAL HISTORY: pain 4 views right wrist Comparison: 02/15/2025 Findings: Percutaneous fixation pins extending through the scaphoid bone and capitate bone as well as scaphoid bone and lunate bone are re-identified in stable alignment. No evidence of hardware failure. No acute fracture or dislocation.. Impression: 1. Stable hardware and osseous alignment as described above. This document has been electronically signed by: Alonzo Perdue MD on 02/19/2025 15:56:30
[2025-02-19 15:02] VITALS: BP 129/82; PULSE 116; RESP 18; TEMP 36.4; O2SAT 96; BMI 29.0
--- NOTE | 2025-02-19 15:03 | ED.GENADULT ---
HPI - General Adult General Chief complaint: Extremity Problem Stated complaint: r arm pain in cast needs cast check Time Seen by Provider: 02/19/25 15:10 Source: patient History of Present Illness HPI narrative: 44-year-old male, status post right scapholunate ligament tear repair on January 06 presents for evaluation of right wrist pain at the surgical site. Patient states he had follow up with his hand surgeon, Dr. Avelar on February 15. At that time the cast was removed and he was recasted. Patient states that he is feeling discomfort at the site of the pins that are protruding. He denies any paresthesias or paralysis. He is right-hand dominant. He did not call the office. Patient denies any repeat trauma. Related Data Home Medications ?Medication ?Instructions ?Recorded ?Confirmed methylphenidate HCl 27 mg 27 mg PO QAM PRN unknown 12/29/24 01/06/25 tablet,extended release 24 hr prazosin 2 mg capsule 2 mg PO BEDTIME 12/29/24 01/06/25 venlafaxine 150 mg 300 mg PO BEDTIME 12/29/24 01/06/25 capsule,extended release 24 hr Allergies Allergy/AdvReac Type Severity Reaction Status Date / Time No Known Allergies Allergy Verified 02/19/25 15:05 Review of Systems Review of Systems: Yes all other systems are reviewed and are negative Musculoskeletal: Musculoskeletal: Denies deformity and Denies arthralgias FOR[facility]LY [facility], [facility] Past Medical History Medical History Tympanosclerosis of left ear Surgical History History of tympanoplasty of left ear Social History Social History Patient Tobacco Use Status: Former Tobacco user Tobacco use type: Cigarette Advance Directives: No Advance Directives Information Provided: Yes Current occupational status: employed 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 Full range of motion of all digits. Capillary refill less than 2 seconds. There was no erythema. Course Course Course Narrative: Medical screening exam performed. Please refer to detailed history, exam, evaluation, and management by primary provider. Status post scapholunate ligament repair January 06. Reevaluation(s) Reevaluation #1: 3:06 p.m. message to [facility]. Requesting that the cast be removed then the patient sent to x-ray. If x-ray is okay, he patient may be placed back in a volar splint and he will arrange for follow up in the office this coming week. 3:30 p.m. patient seen and evaluated by cesilia Asencio. Dressing over the surgical site was removed by him and cleansed. Reviewed all orthopedic follow up instructions with the patient. See procedure notes. Patient tolerated splinting. Reviewed all discharge instructions. No further questions at this time. Procedures Orthopedic Splinting/Casting Injury #1: Side: right Upper Extremity Injury Location: wrist Upper Extremity Immobilizer: volar splint Additional Comments: Dry sterile dressing was applied to the pin site for stabilization. Wrap was applied. Padding and volar Orthoglass follow up by Segundo wrap. Motor and sensation intact. Capillary refill less than 2 seconds. Medical Decision Making Medical Decision Making MDM Narrative: 44-year-old male status post hand surgery, reporting pain at the surgical site. Verify with ortho for next steps. Differential Diagnosis Differential Diagnoses: The differential diagnosis associated with the presentation includes Hardware failure Postop infection Cast malfunction Contusion Consult Healthcare Provider Management of the patient was discussed with: Mechanical Planner (Orthopedic) Radiology Impression Discussion of test interpretation with radiology: I have reviewed the radiologist's reading. Prescription Management I considered prescription management with: Pain Medication Discharge Plan Discharge Clinical Impression: Post-operative pain Patient Disposition: Home, Self-Care Instructions: Splint Care (ED) Additional Instructions: Splint as directed. Do not get wet. Follow up with Dr. Avelar this week. Follow-up with your primary care provider. Call this week to schedule a follow-up appointment. Return to the emergency department if you have any worsening of symptoms, or any concerns. Get well soon! Prescriptions: No Action venlafaxine 150 mg capsule,extended release 24hr 300 mg PO BEDTIME prazosin 2 mg capsule 2 mg PO BEDTIME methylphenidate HCl 27 mg tablet extended release 24hr 27 mg PO QAM PRN (Reason: unknown) Referrals: Kassi Avelar MD [Physician, Hand Surgery] Print Language: Guamanian
--- OUTSIDE RECORDS SUMMARY | 2025-02-19 15:58 | XMS_ITS | Data Portability ---
Author Organization [facility] [employer], [address] Address [address] [place] [address] Assessment No assessment recorded. Plan of Treatment [...] Out Template NON DOT completed [facility] 04/01/2024 12:34:10 Imaging Results None recorded. Procedure [...] ICD10 Code Diagnosis IMO Codes Diagnosis Note [id number] [facility] [address] [address] 10/19/2018 13:18:02 10/19/2018 15:15:01 [id number] PJ BREEN MD [address] [address] 04/01/2024 12:06:37 04/01/2024 12:41:11 History and physical examination, occupation 046075252 Z02.1 Health Concerns Section Related Observation LastModified by Organization Detai ls LastModified Time None Recorded Concern Status LastModified by Organization Details LastModified Time None Recorded Advance Directives Directive None Recorded Payers Insurance Date Sequence Insurance Name Policy Number Policy Pizano Covered Member ID Pizano Member ID Guarantor Name 04/01/2024 OC-ESCREEN Oc-Escreen Test Account-1_ 01.24.2017 [id number] Jerson Hancock 04/01/2024 1 [facility] [id number] 1 Jerson Hancock [id number] Jerson Hancock
--- OUTSIDE RECORDS SUMMARY | 2025-02-19 15:58 | XMS_ITS | Clinical Summary ---
Author Organization [facility] Address [address] [place] [address] Care Team Providers Care Project Production Engineer Name Role Phone Unavailable Primary Care Provider Unavailabl e Source Comments PLEASE NOTE, if this patient is a minor, it may be UNLAWFUL to discuss sensitive information that is contained in these records (such as FAMILY PLANNING, MENTAL HEALTH or SUBSTANCE ABUSE) with the minor patient's parent or other person without the patient's specific authorization.[facility] Allergies No known active allergies Medications [place]-3 Fatty Acids-Vitamin E (FISH OIL) 1,000 mg cap Take 2 Caps by mouth once daily. Active loratadine (CLARITIN) 10 mg tablet Take 10 mg by mouth once daily. Active L.acidoph-L.rhamn -B.bif-B.long (PROBIOTIC ACIDOPHILUS BIOBEADS) 2.5 billion cell TbEC Take 1 Tab by mouth once daily. Active yl-tv-FD-lycopene -lut-#178herb (KATIE MULTIVITAMIN FOR MEN) 200-175-250 mcg [...]
--- OUTSIDE RECORDS SUMMARY | 2025-02-19 15:58 | XMS_ITS | Data Portability ---
Author Organization [facility], 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 Tobacco: Denies. FHx: No family history that [...] neg. Speed's: neg. Neer: neg. Guerrero: Positive. [place]: Positive. Biceps labral provocation: Positive. Javier' 90/90 [...] for any reason. Sincerely, Brock Tipton MD, [facility] Sports Medicine [facility] katerina Not available 07/10/2023 17:56:45 [...] today. 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 All questions answered today. [email or web address] Not available 07/24/2023 09:19:33 09/04/2023 09/04/2023 Imaging [...] in 6 weeks. All questions answered today. [email or web address] Not available 09/04/2023 18:24:08 Plan of Treatment [...] of superior glenoid labrum of left shoulder [id number] 108 Active 2023 Brock hernandez MD [address], [address], [facility] 17:57:00 Problem Notes None recorded. Procedures Surgical History Date Name Laterality Status Provider Name and Address Organization Details Recorded Time Sports Shoulder completed Dylan Sweet MD [address], [address], [facility] 07/24/2023 09:16:15 Imaging Results None [...] Updated DateTime 07/10/2023 187.96 cm 28.2 kg/m2 07415.32 g NOAH AQUINO [facility] 07/10/2023 14:14:55 Date Recorded Body height Body mass index (BMI) Body weight Provider Name and Address Organization Details Last Updated DateTime 07/24/2023 187.96 cm 28.2 kg/m2 85725.32 g JOSÉ LUIS ANTON [facility] 07/24/2023 08:37:26 Date Recorded Body height Body mass index (BMI) Body weight Provider Name and Address Organization Details Last Updated DateTime 09/04/2023 187.96 cm 28.2 kg/m2 96211.32 g Candice guo [facility] 09/04/2023 09:30:56 Social History Question Answer Notes LastModified by Organizat ion Details LastModified Time Tobacco Smoking Status Never Smoker NOAH mercado [facility] 07/10/2023 14:17:06 When Did You Quit Smoking? [...] Problems N Anemia N Vascular Disease N Gastrointestinal Disease N Heart Attack (ND) N Diabetes N Autoimmune disease N Bleeding Disorder N Orthotics N Arthritis N Seizures/Epilepsy N Blood Clot N AIDS/HIV N Congestive Heart Failure (CHF) N Acid Reflux (GERD) N Cancer N Stroke N Asthma N Peripheral Vascular Disease N Sleep Apnea N Hepatitis N Heart Disease N Rheumatoid Arthritis N Arrhythmia N Pulmonary Embolism N Fibromyalgia N Hypertension N Osteoporosis N Past Encounters Encounter ID Performer Location Encounter Start Date Encounter Closed Date Diagnosis/Indication Diagnosis SNOMED-CT Code Diagnosis ICD10 Code Diagnosis IMO Codes Diagnosis Note [id number] Brock smith MD [facility] on [address] [place] [address] 07/10/2023 13:46:26 07/25/2023 13:33:20 Anterior to posterior tear of superior glenoid labrum of left shoulder [id number] 0974154 S43.432D [id number] [facility] [address] [place] [address] 07/24/2023 08:33:07 08/19/2023 12:44:20 Glenoid labrum tear 270754635 S43.432A [id number] [facility] [address] [place] [address] 09/04/2023 09:12:04 09/27/2023 08:16:58 Glenoid labrum tear [id number] S43.432A Health Concerns Section Related Observation LastModified by Organization Detai ls LastModified Time None Recorded Concern Status LastModified by Organization Details LastModified Time None Recorded Advance Directives Directive None Recorded Payers Insurance Date Sequence Insurance Name Policy Number Policy Pizano Covered Member ID Pizano Member ID Guarantor Name 10/21/2023 1 [facility] [id number] 1 Jerson Hancock [id number] Jerson Hancock Notes Date Note Type Note Provider Name and Address Organization Details Recorded Time 07/24/2023 text/html CC: Left shoulder painHPI: Patient is a 43-year-old ntzmn-nlyo-nsrvbvne 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 Patient reports his shoulder has always felt loose . patient reports symptoms worsened after injury while training during [employer] in November 2022. He describes. Having his arm positioned in a Kamora lock where he felt his shoulder subluxate. Since that episode he has had worsening pain and instability symptoms. He describes pain and weakness with overhead lifting and supination. 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 He has been following with Dr. 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 Tobacco: Denies. Dylan Sweet MD [address] [place] [address] [address], [place], [address], [facility] 07/24/2023 09:20:10 09/04/2023 text/html [...] a ventilator. 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 He has been following with Dr. 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 Tobacco: Denies. Dylan Sweet MD [address] [place] [address] [address], [place], [address], [facility] 09/04/2023 18:24:22
[2025-02-19 16:37] VITALS: BP 129/82; PULSE 116; RESP 18; TEMP 36.4; O2SAT 96
== END 2025-02-19 16:38 | disposition home or self-care (01) ==
PROVIDERS: Emergency Provider Emergency Medicine Emergency Medical Services
DX: G89.18 Other acute postprocedural pain (principal); S63.591D Other specified sprain of right wrist, subsequent encounter; X58.XXXD Exposure to other specified factors, subsequent encounter
CPT/HCPCS: 29125; 73110; 99282; 99283

== ENCOUNTER → 2025-02-19 15:11 | Outpatient (BNV) | payer OTHER, SELFPAY | PROVIDERS: Emergency Provider Emergency Medicine Emergency Medical Services; Visit Provider Radiology Diagnostic Radiology | DX: M25.531 Pain in right wrist (principal) | CPT/HCPCS: 73110 ==

== ENCOUNTER 2025-02-21 10:08 | Outpatient (AMB) | payer OTHER, SELFPAY ==
--- NOTE | 2025-02-21 10:11 | MHC.OFFVIS ---
Vital Signs 02/21/25 10:12 Height 6 ft 2 in Weight 226 lb BMI 29.0 Intake Visit Reasons: PO-RT SL ligament repair 01/06/25-Splint change Intake Note: Jerson is a 44 year old right hand dominant male who presents today Post-Operatively for a Splint Change status post Right Scaphoid ORIF & Scapholunate Ligament repair, DOS: 01/06/[address] Avelar. At their last visit with Dr. Avelar they were placed in a short arm cast. 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 Patient's plan includes possible K-Wire removal at upcoming PO visit, 03/01/25. Patient was seen at [facility] ED for a cast change. Patient was placed in a short short splint. Allergies No Known Allergies Allergy (Verified 02/21/25 10:13) HPI HPI PO-RT SL ligament repair 01/06/25-Splint change: Details: Jerson is a 44 year old right hand dominant male who presents today Post-Operatively for a Splint Change status post Right Scaphoid ORIF & Scapholunate Ligament repair, DOS: 01/06/[address] Avelar. At their last visit with Dr. Avelar they were placed in a short arm cast. 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 Patient's plan includes possible K-Wire removal at upcoming PO visit, 03/01/25. Patient was seen at [facility] ED for a cast change. Patient was placed in a short splint. Patient reports that his pain has improved very significantly since being placed into a new splint in the ED, as the cast was rubbing on the pins and causing him significant discomfort. 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 The pins do not appear to have moved No pain with gentle axial loading of the wrist No tenderness about the wrist. No swelling no erythema or warmth. Sensation is intact Cap refill is brisk He can bring his fingers close to a weak fist and back into extension. Normal sensation to the tips of all digits. Some decreased sensation in part of the superficial radial nerve distribution over the dorsal ulnar aspect of the thumb that is unchanged. Radiographs: 3 views of the right wrist were taken in the ED over the weekend and viewed by me today in clinic. They show the scapholunate interval well-reduced with satisfactory position of 2 K-wires. There has been some very small migration of the scaphocapetate pin, which is now entering the hamate. Psych Appearance: grossly normal Affect: normal affect Attitude: cooperative Office Procedures Casting/Splints 34953-Pfbt/Wrist Cast Application Procedure code (CPT) selection complete Assessment & Plan Assessment & Plan (1) Right scapholunate ligament tear: Code(s): S63.8X1A - Sprain of other part of right wrist and hand, initial encounter Category: Medical Plan Assessment & Plan: 1. 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 I educated him about the post-operative course He was placed in a short arm cast, to be worn until previously scheduled follow-up Patient should follow-up with Dr. Avelar for previously scheduled appointment, sooner with any acute concerns Coding Level of Care Code Global (85360) Diagnoses Right scapholunate ligament tear S63.8X1A CPT Codes Casting - CPT: 48816-Vbyk/Wrist Cast Application ([id number])
[2025-02-21 10:12] VITALS: BMI 29.0
--- OUTSIDE RECORDS SUMMARY | 2025-02-21 11:50 | XMS_ITS | Clinical Summary ---
Author Organization [facility] Address [address] [place] [address] Care Team Providers Care Senior Product Analyst Name Role Phone Unavailable Primary Care Provider Unavailabl e Source Comments PLEASE NOTE, if this patient is a minor, it may be UNLAWFUL to discuss sensitive information that is contained in these records (such as FAMILY PLANNING, MENTAL HEALTH or SUBSTANCE ABUSE) with the minor patient's parent or other person without the patient's specific authorization.[facility] Allergies No known active allergies Medications [place]-3 Fatty Acids-Vitamin E (FISH OIL) 1,000 mg cap Take 2 Caps by mouth once daily. Active loratadine (CLARITIN) 10 mg tablet Take 10 mg by mouth once daily. Active L.acidoph-L.rhamn -B.bif-B.long (PROBIOTIC ACIDOPHILUS BIOBEADS) 2.5 billion cell TbEC Take 1 Tab by mouth once daily. Active sk-bt-[place]-lycopene -lut-#178herb (KATIE MULTIVITAMIN FOR MEN) 200-175-250 mcg [...]
== END 2025-02-21 11:16 | disposition home or self-care (01) ==
LOC: HO.HOS 10:08
DX: S63.8X1A Sprain of other part of right wrist and hand, initial encounter (principal)
CPT/HCPCS: 29075; 99024

== ENCOUNTER → 2025-02-21 10:08 | Outpatient (BNVA) | payer OTHER, SELFPAY | DX: Z46.89 Encounter for fitting and adjustment of other specified devices (principal); S63.8X1D Sprain of other part of right wrist and hand, subsequent encounter | CPT/HCPCS: 29075; 99212 ==

== ENCOUNTER 2025-03-01 08:21 | Outpatient (REF) | payer OTHER, SELFPAY ==
--- NOTE | ~2025-03-01 | XR_ITS ---
EXAMINATION: XR WRIST, RIGHT CLINICAL INFORMATION: M25.531 - Pain in right wrist COMPARISON: X-ray 12/20/2024 TECHNIQUE: PA, lateral, and oblique views of the right wrist. FINDINGS: Percutaneous fixation pins extending through the scaphoid and capitate bones, and a fixation pin extending through the scaphoid and lunate bone are redemonstrated. Stable position and alignment. No findings to suggest hardware complication. No new acute fracture or dislocation. Ulnar negative variance. XR/XR wrist RT min 3V IMPRESSION: Stable alignment of the osseous structures and the hardware. No hardware complications. Electronically signed by: Jose Willson MD 03/01/2025 01:15 PM [facility]
--- OUTSIDE RECORDS SUMMARY | 2025-03-02 16:00 | XMS_ITS | Data Portability ---
Author Organization [facility], [address] Address [address] [place] [address] Assessment No assessment recorded. Plan of Treatment [...] Out Template NON DOT completed SEAN Brown [facility] 04/01/2024 12:34:10 Imaging Results None recorded. Procedure [...] ICD10 Code Diagnosis IMO Codes Diagnosis Note [id number] [address] [address] [address] 10/19/2018 13:18:02 10/19/2018 15:15:01 [id number] PJ BREEN MD [address] [address] 04/01/2024 12:06:37 04/01/2024 12:41:11 History and physical examination, occupation [id number] Z02.1 Health Concerns Section Related Observation LastModified by Organization Detai ls LastModified Time None Recorded Concern Status LastModified by Organization Details LastModified Time None Recorded Advance Directives Directive None Recorded Payers Insurance Date Sequence Insurance Name Policy Number Policy Pizano Covered Member ID Pizano Member ID Guarantor Name 04/01/2024 OC-ESCREEN [employer] Test Account-1_ 01.24.2017 [id number] Jerson Hancock 04/01/2024 1 [facility] [id number] Jerson Hancock [id number] Jerson Hancock
--- OUTSIDE RECORDS SUMMARY | 2025-03-02 16:00 | XMS_ITS | Data Portability ---
Author Organization 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 Tobacco: Denies. FHx: No family history that [...] neg. Speed's: neg. Neer: neg. Guerrero: Positive. Rains: Positive. Biceps labral provocation: Positive. Javier' 90/90 [...] for any reason. Sincerely, Brock Tipton MD, [facility] katerina Not available 07/10/2023 17:56:45 [...] today. 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 All questions answered today. [email or web address] Not available 07/24/2023 09:19:33 09/04/2023 09/04/2023 Imaging [...] in 6 weeks. All questions answered today. [email or web address] Not available 09/04/2023 18:24:08 Plan of Treatment [...] of superior glenoid labrum of left shoulder [id number] 108 Active 2023 Brock hernandez MD [address], [address], [facility] 17:57:00 Problem Notes None recorded. Procedures Surgical History Date Name Laterality Status Provider Name and Address Organization Details Recorded Time Sports Shoulder completed Dylan Sweet MD [address], [address], [facility] [...] Updated DateTime 07/10/2023 187.96 cm 28.2 kg/m2 19231.32 g NOAH AQUINO [facility] 07/10/2023 14:14:55 Date Recorded Body height Body mass index (BMI) Body weight Provider Name and Address Organization Details Last Updated DateTime 07/24/2023 187.96 cm 28.2 kg/m2 83110.32 g JOSÉ LUIS ANTON [facility] 07/24/2023 08:37:26 Date Recorded Body height Body mass index (BMI) Body weight Provider Name and Address Organization Details Last Updated DateTime 09/04/2023 187.96 cm 28.2 kg/m2 87093.32 g Candice guo [facility] 09/04/2023 09:30:56 Social History Question Answer Notes LastModified by Organizat ion Details LastModified Time Tobacco Smoking Status Never Smoker NOAH mercado [facility] 07/10/2023 14:17:06 When Did You Quit [...] Disease N Gastrointestinal Disease N Heart Attack (LA) N Diabetes N Autoimmune disease N Bleeding [...] ICD10 Code Diagnosis IMO Codes Diagnosis Note [id number] Brock smith MD [facility] on [address] [place] [address] 07/10/2023 13:46:26 07/25/2023 13:33:20 Anterior to posterior tear of superior glenoid labrum of left shoulder [id number] S43.432D [id number] [facility] [address] [place] [address] 07/24/2023 08:33:07 08/19/2023 12:44:20 Glenoid labrum tear [id number] S43.432A [id number] [facility] [address] [place] [address] 09/04/2023 09:12:04 09/27/2023 08:16:58 Glenoid labrum tear [id number] S43.432A Health Concerns Section Related Observation LastModified by Organization Detai ls LastModified Time None Recorded Concern Status LastModified by Organization Details LastModified Time None Recorded Advance Directives Directive None Recorded Payers Insurance Date Sequence Insurance Name Policy Number Policy Pizano Covered Member ID Pizano Member ID Guarantor Name 10/21/2023 1 [facility] [id number] 1 Jerson Hancock [id number] Jerson Hancock Notes Date Note Type Note Provider Name and Address Organization Details Recorded Time 07/24/2023 text/html CC: Left shoulder painHPI: Patient is a 43-year-old zrxnv-vmoo-orauzqie 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 Patient reports his shoulder has always felt loose . patient reports symptoms worsened after injury while training during [employer] in November 2022. He describes. Having his arm positioned in a [place] lock where he felt his shoulder subluxate. Since that episode he has had worsening pain and instability symptoms. He describes pain and weakness with overhead lifting and supination. 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 He has been following with Dr. 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 Tobacco: Denies. Dylan Sweet MD [address] [place] [address] [address], [place], [address], [facility] 07/24/2023 09:20:10 09/04/2023 text/html [...] a ventilator. 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 He has been following with Dr. 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 Tobacco: Denies. Dylan Sweet MD [address] [place] [address] [address], [place], [address], [facility] 09/04/2023 18:24:22
== END 2025-03-01 08:22 | disposition home or self-care (01) ==
LOC: HO.HOSX 08:21
PROVIDERS: Visit Provider Orthopaedic Surgery
DX: S63.8X1D Sprain of other part of right wrist and hand, subsequent encounter (principal); Z98.890 Other specified postprocedural states; X00.1 Exposure to smoke in uncontrolled fire in building or structure; Y99.0 Civilian activity done for income or pay
CPT/HCPCS: 73110; 99212

== ENCOUNTER 2025-03-01 10:05 | Outpatient (AMB) | payer OTHER, SELFPAY ==
[2025-03-01 10:30] VITALS: BMI 29.0
--- NOTE | 2025-03-01 10:30 | MHC.OFFVIS ---
Vital Signs 03/01/25 10:30 Height 6 ft 2 in Weight 226 lb BMI 29.0 Intake Visit Reasons: PO-RT SL ligament repair 01/06/25 w/xrays Intake Note: Jerson is a 44 year old right hand dominant male who presents today Post-Operatively status post Right Scaphoid ORIF & Scapholunate Ligament repair, DOS: 01/06/[address] Avelar. Patient was last seen on 02/19/25 with Flaca Brown for a cast change and was advise to keep cast clean and dry. 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 Today cast removed in office and xrays updated. Today we anticipate K-wire removal. Allergies No Known Allergies Allergy (Verified 03/01/25 10:52) HPI HPI PO-RT SL ligament repair 01/06/25 w/xrays: Details: Jerson is a 44 year old right hand dominant male who presents today Post-Operatively status post Right Scaphoid ORIF & Scapholunate Ligament repair, DOS: 01/06/25. He notes that he is doing well. Denies any pain or concerns. He is working on finger ROM at home. 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 Sensation intact to the tips of all digits Cap refill brisk. He can make a fist and extend all of his digits with no locking or catching. His pin sites are clean and dry with no erythema drainage or evidence of infection. Radiographs: Three views of his right wrist were taken today and reviewed by me in clinic. They show satisfactory reduction of the scapholunate interval and satisfactory position of the 2 K-wires. Assessment & Plan Assessment & Plan (1) Right scapholunate ligament tear: Code(s): S63.8X1A - Sprain of other part of right wrist and hand, initial encounter Category: Medical Plan: DOS: 01/06/25 Plan 1. 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 I explained that he is unable to lift anything heavier than a cell phone. Work note was given today which states that he is out of work until next follow up in 4 weeks. Ordered OT to work on gentle ROM, no loading of the joint until 12 weeks postop. As they are light duty still involves lifting objects, I am keeping him out of work until his next follow up in 4 weeks Follow up in 4 weeks. Anticipate returning to light duty with perhaps a 5-10 lb weight limit. 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 No radiographs are necessary. Scribed for Kassi Avelar MD by Liberty Ferrell hospitalist medical director, on 03/01/2025 at 11:32 AM, EST. Orders: Orders XR wrist RT min 3V Today M25.531 - Pain in right wrist OT Evaluation and Treatment Today S63.8X1A - Sprain of other part of right wrist and hand, initial encounter Coding Level of Care Code Global (68043) Diagnoses Right scapholunate ligament tear S63.8X1A
== END 2025-03-01 11:48 | disposition home or self-care (01) ==
LOC: HO.HOS 10:05
PROVIDERS: Visit Provider Orthopaedic Surgery
DX: S63.8X1A Sprain of other part of right wrist and hand, initial encounter (principal)
CPT/HCPCS: 99024

== ENCOUNTER → 2025-03-01 10:06 | Outpatient (BNV) | payer OTHER, SELFPAY | PROVIDERS: Visit Provider Radiology Diagnostic Ultrasound | DX: M25.531 Pain in right wrist (principal) | CPT/HCPCS: 73110 ==

== ENCOUNTER 2025-03-30 10:33 | Outpatient (AMB) | payer OTHER, SELFPAY ==
[2025-03-30 11:03] VITALS: BMI 29.0
--- NOTE | 2025-03-30 11:03 | MHC.OFFVIS ---
Vital Signs 03/30/25 11:03 Height 6 ft 2 in Weight 226 lb BMI 29.0 Intake Visit Reasons: PO-RT SL ligament repair 01/06/25 Intake Note: Jerson is a 44 year old right hand dominant male who presents today Post-Operatively status post Right Scaphoid ORIF & Scapholunate Ligament repair, DOS: 01/06/[address] Avelar. At her last visit he was advise to wear his velcro wrist and work on his ROM with O.T. States he has sharp pains with certain movements. He continues to wear his wrist brace. Allergies No Known Allergies Allergy (Verified 03/30/25 11:15) HPI HPI PO-RT SL ligament repair 01/06/25: Details: Jerson is a 44 year old right hand dominant male who returns S/P Right Scaphoid ORIF & Scapholunate Ligament repair, DOS: 01/06/25. He notes that he is doing well. Denies any pain or concerns. He is working on finger ROM at home. He has started OT hand therapy out in [place]. 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 Review of Systems Const All systems reviewed & are unremarkable except as noted in HPI and below Physical Exam Vital Signs: BMI result Body Mass Index 29.0 Const General: no acute distress and alert Orientation/consciousness: patient oriented x3 Neuro General: patient oriented x3 Extrem Other: Evaluation of Right Upper Extremity: The patient is alert, oriented, and in no acute distress Neuro: Median, Ulnar, Radial nerves motor and sensory intact and sensation is normal to the tips of all digits Vascular: Cap refill brisk ROM: He can make a fist and extend all his digits ~35 degrees flexion ~45 degrees extension Full & symmetrical pronosupination Psych Appearance: grossly normal Affect: normal affect Attitude: cooperative Assessment & Plan Assessment & Plan (1) Right scapholunate ligament tear: Code(s): S63.8X1A - Sprain of other part of right wrist and hand, initial encounter Category: Medical Plan: DOS: 01/06/25 Plan Assessment & Plan 1. 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 He will continue to wear his splint when out of the house for the next 4 weeks. He can remove this at home. 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 Anticipate return to full duty or increased light duty, depending on how the patient feels. 25lb weight limit required for their typical light duty Scribed for Kassi Avelar MD by Sammy Melendez medical technician assistant, on 03/30/25 at 11:15 AM, EST. Coding Level of Care Code Global (30261) Diagnoses Right scapholunate ligament tear S63.8X1A
== END 2025-03-30 11:37 | disposition home or self-care (01) ==
LOC: HO.HOS 10:34
PROVIDERS: Visit Provider Orthopaedic Surgery
DX: S63.8X1A Sprain of other part of right wrist and hand, initial encounter (principal)
CPT/HCPCS: 99024

== ENCOUNTER → 2025-03-30 10:33 | Outpatient (BNVA) | payer OTHER, SELFPAY | PROVIDERS: Visit Provider Orthopaedic Surgery | DX: S63.8X1D Sprain of other part of right wrist and hand, subsequent encounter (principal); Z98.890 Other specified postprocedural states | CPT/HCPCS: 99212 ==